=== PATIENT | female | born 1950 | race Native Hawaiian/Other Pacific Islander ===

== ENCOUNTER 2016-06-09 10:55 | Outpatient (CLI) | payer OTHER ==
[~2016-06-09 10:55] MED LIST: AMBIEN CR6.25 MG OR; BENZ100C8 PO; BENZONATATE200 MG PO; CEFUROXIME500 MG PO; CETI10TA PO; FLUT0.05 NAS; IBUP800T30 PO; LEVO500T PO; MEDROL DOSEPAK4 MG OR; NEXIUM40 M1 OR; SIMV20TA2 PO; TRIA37.541 PO; UNITH DIRECT25 MCG PO
== END 2016-06-09 19:43 | disposition home or self-care (01) ==
LOC: LABW 10:55
DX: B35.3 Tinea pedis (principal)
CPT/HCPCS: 36415; 80076

== ENCOUNTER 2016-07-23 08:56 | Outpatient (CLI) | payer OTHER | END 2016-07-23 10:00 | disposition home or self-care (01) | LOC: LABW 08:56 | DX: B42.89 Other forms of sporotrichosis (principal) | CPT/HCPCS: 36415; 80076 ==

== ENCOUNTER 2016-11-08 09:11 | Outpatient (CLI) | payer OTHER ==
[2016-11-08 09:27] LABS: PLATELET COUNT 243 K/uL (152-353)
[2016-11-08 09:51] LABS: POTASSIUM 3.4 mmol/L (3.6-5.2); SODIUM 135 mmol/L (136-145)
== END 2016-11-08 10:15 | disposition home or self-care (01) ==
LOC: LABW 09:11
PROVIDERS: Physician Assistant
DX: K21.9 Gastro-esophageal reflux disease without esophagitis (principal); E03.8 Other specified hypothyroidism; I10 Essential (primary) hypertension; J42 Unspecified chronic bronchitis; Z79.899 Other long term (current) drug therapy; Z51.81 Encounter for therapeutic drug level monitoring
CPT/HCPCS: 36415; 80053; 80061; 83036; 84439; 84443; 85027

== ENCOUNTER 2017-01-22 02:53 | Emergency (ER) | payer OTHER ==
[~2017-01-22] VITALS: Ht 154.9 cm; Wt 85.3 kg
[2017-01-22 03:28] LABS: PLATELET COUNT 227 K/uL (152-353)
[2017-01-22 04:11] VITALS: BP 137/81; TEMP 97.9
== END 2017-01-22 04:11 | disposition home or self-care (01) ==
LOC: ED 02:53
DX: J18.9 Pneumonia, unspecified organism (principal); R05 Cough
CPT/HCPCS: 85027; 96372; 99283; J0696

== ENCOUNTER 2017-03-07 09:20 | Outpatient (CLI) | payer OTHER | END 2017-03-07 10:30 | disposition home or self-care (01) | LOC: US 09:20 | DX: N64.89 Other specified disorders of breast (principal) ==

== ENCOUNTER 2017-04-27 09:28 | Outpatient (CLI) | payer OTHER | END 2017-04-27 11:00 | disposition home or self-care (01) | LOC: RAD 09:28 | DX: Z01.818 Encounter for other preprocedural examination (principal) ==

== ENCOUNTER 2017-06-16 00:14 | Emergency (ER) | payer OTHER ==
[~2017-06-16] VITALS: Ht 154.9 cm; Wt 83.5 kg
[2017-06-16 03:04] VITALS: BP 158/65; TEMP 98.5
== END 2017-06-16 03:05 | disposition home or self-care (01) ==
LOC: ED 00:14
DX: J98.01 Acute bronchospasm (principal)
CPT/HCPCS: 94664; 99283

== ENCOUNTER 2018-02-02 05:48 | Emergency (ER) | payer OTHER ==
[~2018-02-02] VITALS: Ht 154.9 cm; Wt 81.6 kg
[2018-02-02 06:21] VITALS: BP 119/77; TEMP 98.8
== END 2018-02-02 06:23 | disposition home or self-care (01) ==
LOC: ED 05:48
DX: J20.9 Acute bronchitis, unspecified (principal); I10 Essential (primary) hypertension
CPT/HCPCS: 99281

== ENCOUNTER 2018-02-04 05:00 | Emergency (ER) | payer OTHER ==
[~2018-02-04] VITALS: Ht 154.9 cm; Wt 81.6 kg
[2018-02-04 06:14] VITALS: BP 155/78; TEMP 98.3
== END 2018-02-04 06:16 | disposition home or self-care (01) ==
LOC: ED 05:00
DX: J40 Bronchitis, not specified as acute or chronic (principal)
CPT/HCPCS: 96372; 99282; J2930

== ENCOUNTER 2018-03-20 10:05 | Outpatient (CLI) | payer OTHER ==
[2018-03-20 10:38] LABS: PLATELET COUNT 202 K/uL (152-353)
[2018-03-20 11:00] LABS: POTASSIUM 3.5 mmol/L (3.6-5.2)
== END 2018-03-20 19:08 | disposition home or self-care (01) ==
LOC: LABW 10:05
PROVIDERS: Internal Medicine
DX: Z00.00 Encounter for general adult medical examination without abnormal findings (principal); I10 Essential (primary) hypertension; E03.8 Other specified hypothyroidism
CPT/HCPCS: 36415; 80053; 80061; 81000; 84439; 84443; 85027

== ENCOUNTER 2018-10-17 15:14 | Outpatient (CLI) | payer OTHER | END 2018-10-17 19:48 | disposition home or self-care (01) | LOC: US 15:14 | DX: M79.89 Other specified soft tissue disorders (principal) ==

== ENCOUNTER 2018-12-23 21:41 | Emergency (ER) | payer OTHER ==
[~2018-12-23] VITALS: Ht 154.9 cm; Wt 81.6 kg
[2018-12-23 22:18] LABS: PLATELET COUNT 232 K/uL (152-353)
[2018-12-23 22:24] LABS: POTASSIUM 3.5 mmol/L (3.6-5.2)
[2018-12-23 22:58] VITALS: BP 156/75; TEMP 97.5
== END 2018-12-23 22:58 | disposition home or self-care (01) ==
LOC: ED 21:41
PROVIDERS: Hospitalist
DX: I10 Essential (primary) hypertension (principal); R42 Dizziness and giddiness
CPT/HCPCS: 80048; 81000; 85027; 93005; 99283

== ENCOUNTER 2018-12-26 22:58 | Emergency (ER) | payer OTHER ==
[~2018-12-26] VITALS: Ht 154.9 cm; Wt 81.6 kg
[2018-12-27 00:08] LABS: PLATELET COUNT 215 K/uL (152-353)
[2018-12-27 00:09] LABS: POTASSIUM 3.4 mmol/L (3.6-5.2)
[2018-12-27 00:50] VITALS: BP 137/77; TEMP 97.8
== END 2018-12-27 00:50 | disposition home or self-care (01) ==
LOC: ED 22:58
PROVIDERS: Emergency Medicine
DX: I10 Essential (primary) hypertension (principal); R00.1 Bradycardia, unspecified
CPT/HCPCS: 36415; 80053; 85027; 93005; 99283

== ENCOUNTER 2019-03-29 10:33 | Emergency (ER) | payer OTHER ==
[~2019-03-29] VITALS: Ht 154.9 cm; Wt 83.9 kg
[2019-03-29 10:44] VITALS: TEMP 97.2
[2019-03-29 11:44] LABS: PLATELET COUNT 194 K/uL (152-353)
[2019-03-29 11:53] LABS: POTASSIUM 3.5 mmol/L (3.6-5.2)
[2019-03-29 14:44] VITALS: BP 153/71
== END 2019-03-29 14:48 | disposition home or self-care (01) ==
LOC: ED 10:33
PROVIDERS: Family Medicine
DX: S86.811A Strain of other muscle(s) and tendon(s) at lower leg level, right leg, initial encounter (principal); M16.0 Bilateral primary osteoarthritis of hip; M17.11 Unilateral primary osteoarthritis, right knee; W17.2XXA Fall into hole, initial encounter; Y92.89 Other specified places as the place of occurrence of the external cause
CPT/HCPCS: 80053; 81000; 85027; 85379; 96372; 99283; J1885

== ENCOUNTER 2019-08-17 23:25 | Emergency (ER) | payer OTHER ==
[~2019-08-17] VITALS: Ht 154.9 cm; Wt 85.7 kg
[2019-08-18 00:27] LABS: PLATELET COUNT 195 K/uL (152-353)
[2019-08-18 00:48] LABS: POTASSIUM 2.9 mmol/L (3.6-5.2); SODIUM 145 mmol/L (136-145)
[2019-08-18 02:10] VITALS: BP 166/84; TEMP 97.9
== END 2019-08-18 02:10 | disposition home or self-care (01) ==
LOC: ED 23:25
PROVIDERS: Emergency Medicine
DX: J40 Bronchitis, not specified as acute or chronic (principal); Z20.828 Contact with and (suspected) exposure to other viral communicable diseases
CPT/HCPCS: 36415; 80053; 82550; 82553; 84484; 85027; 87502; 87635; 87651; 93005; 99283; U0002

== ENCOUNTER 2019-10-24 04:36 | Emergency (ER) | payer OTHER ==
[~2019-10-24] VITALS: Ht 154.9 cm; Wt 86.2 kg
[2019-10-24 05:52] LABS: POTASSIUM 3.4 mmol/L (3.6-5.2)
[2019-10-24 05:57] LABS: PLATELET COUNT 212 K/uL (152-353)
[2019-10-24 07:10] VITALS: BP 154/73; TEMP 98.3
== END 2019-10-24 07:10 | disposition home or self-care (01) ==
LOC: ED 04:36
PROVIDERS: Emergency Medicine
DX: J40 Bronchitis, not specified as acute or chronic (principal); Z20.828 Contact with and (suspected) exposure to other viral communicable diseases
CPT/HCPCS: 36415; 80048; 83605; 85027; 87040; 87502; 87635; 87651; 93005; 96372; 99283; J2930; U0003

== ENCOUNTER 2020-01-22 11:35 | Outpatient (CLI) | payer OTHER | END 2020-01-22 19:58 | disposition home or self-care (01) | LOC: RAD 11:35 | PROVIDERS: ATTEND Internal Medicine | DX: M54.42 Lumbago with sciatica, left side (principal) ==

== ENCOUNTER 2020-03-06 09:02 | Outpatient (CLI) | payer OTHER | END 2020-03-06 23:59 | disposition home or self-care (01) | LOC: MRI 09:02 | PROVIDERS: ATTEND Internal Medicine | DX: M54.16 Radiculopathy, lumbar region (principal) | CPT/HCPCS: 36415; 82565; 84520; A9576 ==

== ENCOUNTER 2020-04-14 10:26 | Outpatient (CLI) | payer OTHER | END 2020-04-14 19:37 | disposition home or self-care (01) | LOC: RAD 10:26 | PROVIDERS: ATTEND Internal Medicine | DX: M25.561 Pain in right knee (principal); M25.551 Pain in right hip; R10.2 Pelvic and perineal pain; W19.XXXA Unspecified fall, initial encounter ==

== ENCOUNTER 2020-05-01 01:31 | Observation (INO) | payer OTHER ==
[2020-05-01] VITALS (11 sets, daily range): BP systolic 117–149; BP diastolic 67–87; TEMP 98–98.8; Ht 154.9 cm; Wt 83.1 kg
[~2020-05-01] VITALS: Ht 154.9 cm; Wt 83.1 kg
[2020-05-01 02:26] LABS: PLATELET COUNT 180 K/uL (152-353)
[2020-05-01 02:33] LABS: POTASSIUM 2.9 mmol/L (3.6-5.2); SODIUM 138 mmol/L (136-145)
[2020-05-01 02:47] LABS: PARTIAL THROMBOPLASTIN TIME 23.6 SECONDS (24.5-33.6)
--- NOTE | 2020-05-01 08:24 | NUR ---
PT AWAKE, A/O X3, IN NAD, DENIES CP BUT STATES HER "ALLERGIES" ARE CAUSING HER TO BE A "LITTLE SHORT OF BREATH". IRREGULAR HR NOTED ON AUSCULTATION AND VERIFIED WITH TELEMETRY. PT PLACED ON O2 AT 2LPM VIA NC. PT ORIENTED TO ROOM, CALL LIGHT AND ENCOURAGED TO NOTIFY STAFF WITH NEED, PT VERBALIZED UNDERSTANDING.
--- NOTE | 2020-05-01 09:14 | NUR ---
NOTIFIED DR. YOST OF HR AND PLACING PT ON O2. NO NEW ORDERS AT THIS TIME.
[2020-05-01] MEDS ORDERED: PRAVACHOL20 MG PO (11:22)
[2020-05-01] MEDS ORDERED: TRAMADOL HYDROC50 MG PO (11:24)
--- NOTE | 2020-05-01 11:29 | NUR ---
PT DENIES CP, SOB. REQUESTS SNACK- WAS GIVEN CRACKERS AND MILK.
[2020-05-01] MEDS ORDERED: MOBIC15 MG PO (11:35)
[2020-05-01] MEDS ORDERED: TIZANIDINE HYDRO2 MG PO (11:37)
[2020-05-01] MEDS ORDERED: ANAS1TAB PO (11:38)
[2020-05-01] MEDS ORDERED: DOK100 MG PO (11:39)
[2020-05-01] MEDS ORDERED: LINZESS290 MCG PO (11:39)
--- NOTE | 2020-05-01 13:07 | NUR ---
PT LAYING SUPINE IN BED, IN NAD, CALL LIGHT IN EASY REACH.WILL CONTINUE TO MONITOR.
--- NOTE | 2020-05-01 15:19 | NUR ---
NO CHANGE IN STATUS AT THIS TIME, CALL LIGHT IN EASY REACH. WILL CONTINUE TO MONITOR. PT DENIES CP.
--- NOTE | 2020-05-01 18:32 | NUR ---
DC INSTRUCTIONS EXPLAINED TO PT WHO VERBALIZED UNDERSTANDING.
--- NOTE | 2020-05-01 18:44 | NUR ---
PT WHEELED TO EXIT, LEFT FLOOR IN NAD, BELONGINGS SENT HOME WITH PT. NO HOME MEDS WERE BRIAN WITH PT.
== END 2020-05-01 18:48 | disposition home or self-care (01) ==
LOC: ED 01:31 → MED/SURG 03:00
PROVIDERS: ADMIT Hospitalist; ATTEND Internal Medicine Endocrinology, Diabetes & Metabolism
DX: R07.89 Other chest pain (principal); M15.8 Other polyosteoarthritis; K21.9 Gastro-esophageal reflux disease without esophagitis; I10 Essential (primary) hypertension; E03.8 Other specified hypothyroidism; E78.49 Other hyperlipidemia; K59.09 Other constipation; E66.8 Other obesity; Z68.34 Body mass index [BMI] 34.0-34.9, adult; R06.02 Shortness of breath
CPT/HCPCS: 36415; 80053; 82550; 83880; 84484; 85027; 85610; 85730; 87635; 93005; 94760; 99220; 99283; G0378; J1650; U0003

== ENCOUNTER 2020-07-27 08:54 | Outpatient (CLI) | payer OTHER ==
[~2020-07-27 08:54] MED LIST changes: +ANAS1TAB PO; +DOK100 MG PO; +LINZESS290 MCG PO; +MOBIC15 MG PO; +PRAVACHOL20 MG PO; +TIZANIDINE HYDRO2 MG PO; +TRAMADOL HYDROC50 MG PO
== END 2020-07-27 21:45 | disposition home or self-care (01) ==
LOC: RESP 08:54
PROVIDERS: ATTEND Specialist
DX: R07.89 Other chest pain (principal); I10 Essential (primary) hypertension

== ENCOUNTER 2020-07-28 08:56 | Outpatient (CLI) | payer OTHER ==
[~2020-07-28] VITALS: Ht 154.9 cm; Wt 84.4 kg
== END 2020-07-28 22:40 | disposition home or self-care (01) ==
LOC: NM 08:56
PROVIDERS: ATTEND Specialist
DX: R07.89 Other chest pain (principal); R94.31 Abnormal electrocardiogram [ECG] [EKG]
CPT/HCPCS: A9500; J2785

== ENCOUNTER 2020-08-13 16:28 | Outpatient (CLI) | payer OTHER | END 2020-08-13 19:00 | disposition home or self-care (01) | LOC: RAD 16:28 | PROVIDERS: ATTEND Internal Medicine | DX: J40 Bronchitis, not specified as acute or chronic (principal) ==

== ENCOUNTER 2020-08-31 15:30 | Outpatient (CLI) | payer OTHER | END 2020-08-31 21:32 | disposition home or self-care (01) | LOC: US 15:30 | PROVIDERS: ATTEND Internal Medicine | DX: M25.561 Pain in right knee (principal); M79.89 Other specified soft tissue disorders ==

== ENCOUNTER 2020-10-23 09:18 | Outpatient (CLI) | payer OTHER | END 2020-10-23 19:29 | disposition home or self-care (01) | LOC: RAD 09:18 | PROVIDERS: ATTEND Internal Medicine Hematology & Oncology | DX: C50.411 Malignant neoplasm of upper-outer quadrant of right female breast (principal); I10 Essential (primary) hypertension; E03.8 Other specified hypothyroidism; K21.9 Gastro-esophageal reflux disease without esophagitis; Z13.820 Encounter for screening for osteoporosis; N95.8 Other specified menopausal and perimenopausal disorders ==

== ENCOUNTER 2020-12-09 09:16 | Outpatient (CLI) | payer OTHER | END 2020-12-09 21:50 | disposition home or self-care (01) | LOC: RAD 09:16 | PROVIDERS: ATTEND Internal Medicine | DX: J40 Bronchitis, not specified as acute or chronic (principal) ==

== ENCOUNTER 2020-12-10 10:02 | Outpatient (CLI) | payer OTHER ==
[~2020-12-10] VITALS: Ht 154.9 cm; Wt 82.7 kg
[2020-12-10 10:30] LABS: PLATELET COUNT 236 K/uL (152-353)
[2020-12-10 10:52] LABS: POTASSIUM 3.6 mmol/L (3.6-5.2)
[2020-12-10 11:20] VITALS: BP 161/75; TEMP 98.7
== END 2020-12-10 18:55 | disposition home or self-care (01) ==
LOC: INF 10:02
PROVIDERS: ATTEND Internal Medicine
DX: M81.0 Age-related osteoporosis without current pathological fracture (principal); E03.8 Other specified hypothyroidism
CPT/HCPCS: 36415; 80053; 80061; 81000; 84439; 84443; 85027; 96372; J0897

== ENCOUNTER 2021-04-15 01:26 | Emergency (ER) | payer OTHER ==
[~2021-04-15] VITALS: Ht 154.9 cm; Wt 87.1 kg
[2021-04-15 01:31] VITALS: TEMP 98.2
[2021-04-15 02:29] VITALS: BP 145/89
== END 2021-04-15 02:31 | disposition home or self-care (01) ==
LOC: ED 01:26
DX: J30.89 Other allergic rhinitis (principal)
CPT/HCPCS: 99282

== ENCOUNTER 2021-06-14 10:41 | Outpatient (CLI) | payer OTHER ==
[~2021-06-14] VITALS: Ht 154.9 cm; Wt 87.5 kg
== END 2021-06-14 20:48 | disposition home or self-care (01) ==
LOC: INF 10:41
PROVIDERS: ATTEND Internal Medicine
DX: M81.0 Age-related osteoporosis without current pathological fracture (principal)
CPT/HCPCS: 36415; 82310; 96372; J0897

== ENCOUNTER 2022-01-14 13:05 | Emergency (ER) | payer OTHER ==
[~2022-01-14] VITALS: Ht 154.9 cm; Wt 87.5 kg
[2022-01-14 13:12] VITALS: TEMP 97.3
[2022-01-14 14:25] VITALS: BP 177/95
== END 2022-01-14 14:39 | disposition home or self-care (01) ==
LOC: ED 13:05
DX: K59.09 Other constipation (principal)
CPT/HCPCS: 99283

== ENCOUNTER → 2022-05-19 | Outpatient (CLI) | payer OTHER | LOC: US 10:57 | PROVIDERS: ATTEND Internal Medicine | DX: N64.4 Mastodynia (principal) ==

== ENCOUNTER 2022-08-02 19:33 | Emergency (ER) | payer OTHER ==
[~2022-08-02] VITALS: Ht 154.9 cm; Wt 88.5 kg
[2022-08-02 19:40] VITALS: TEMP 98.2
[2022-08-02 20:10] VITALS: BP 151/75
== END 2022-08-02 20:10 | disposition home or self-care (01) ==
LOC: ED 19:33
DX: S60.561A Insect bite (nonvenomous) of right hand, initial encounter (principal); W57.XXXA Bitten or stung by nonvenomous insect and other nonvenomous arthropods, initial encounter
CPT/HCPCS: 99281

== ENCOUNTER 2022-08-10 01:14 | Emergency (ER) | payer OTHER ==
[~2022-08-10] VITALS: Ht 154.9 cm; Wt 83.9 kg
[2022-08-10 02:30] VITALS: BP 136/64; TEMP 98.5
== END 2022-08-10 02:30 | disposition home or self-care (01) ==
LOC: ED 01:14
DX: J20.8 Acute bronchitis due to other specified organisms (principal); J30.2 Other seasonal allergic rhinitis
CPT/HCPCS: 87502; 87635; 99283; U0003